=== PATIENT | male | born 1970 | race African-American/Black ===

== ENCOUNTER 2020-10-15 11:09 | Observation (INO) ==
[2020-10-15] MEDS ORDERED: ASPIRIN CHEW 81 MG TABLET PO STA (11:40)
[2020-10-15 11:50] LABS: Basophils # 0.1 10*3/uL (0.0-0.2); Basophils % 0.6 % (0.0-0.8); Eosinophils # 0.4 10*3/uL (0.0-0.87); Eosinophils % 2.7 % (0.00-10.9); Hematocrit 47.7 VOL% (42.0-52.0); Hemoglobin 15.7 GM/DL (14.0-18.0); Immature Granulocytes % 0.5 %; Immature Granulocytes Absolute 0.07 #; Lymphocytes # 4.5 10*3/uL (1.4-4.0); Lymphocytes % 31.4 % (21.2-54.2); Mean Corpuscular HGB Conc 32.9 GM/DL (32-36); Mean Corpuscular Volume 94.1 FL (87-102); Mean Platelet Volume 9.5 FL (9.6-12.0); Monocytes % 7.1 % (1.7-12.7); Neutrophils % 57.7 % (38.7-73.9); Platelet Count 254 T/CUMM (130-400); Red Blood Count 5.07 MC/CUMM (3.8-5.5); Red Cell Distribution Width 12.8 % (9.3-17.3); White Blood Count 14.2 T/CUMM (4-12)
[2020-10-15 12:13] LABS: Anisocytosis Slight; Atypical Lymphocytes Few; Eosinophils 3 % (0-10); Lymphocytes 30 % (20-55); Macrocytosis Slight; Nucleated Red Blood Cells 1 (0-5); Platelet Estimate Normal; Segmented Neutrophils 59 % (50-85); Total Cells Counted 100
[2020-10-15 12:14] LABS: Alanine Aminotransferase < 9 U/L (16-61); Alkaline Phosphatase 83 U/L (45-117); Aspartate Amino Transferase 11 U/L (0-37); Calcium 8.9 MG/DL (8.5-10.1)
[2020-10-15 12:15] LABS: Albumin 3.9 G/DL (3.4-5.0); Blood Urea Nitrogen 9 MG/DL (7-18); Carbon Dioxide 29 MMOL/L (21-32); Estimated Glom Filtration Rate 124 ML/MIN; Glucose 103 MG/DL (74-106); Osmolality,Calculated 279.3 MOS/KG (273-304); Potassium 4.3 MMOL/L (3.5-5.1); Sodium 141 MMOL/L (136-145); Total Protein 7.8 G/DL (6.4-8.2)
[2020-10-15] MEDS ORDERED: guaiFENesin/DM ER 600-30 MG TABLET PO PRN (13:52)
[2020-10-15] MEDS ORDERED: MAGNESIUM SULF RIDER 4 GM/100 ML PREMIX IV PRN (13:52)
[2020-10-15] MEDS ORDERED: diphenhydrAMINE CAP 25 MG CAPSULE PO PRN (13:52)
[2020-10-15] MEDS ORDERED: POTASSIUM CHLORIDE 20 MEQ TABLET PO PRN (13:52)
[2020-10-15] MEDS ORDERED: ONDANSETRON 4 MG/2 ML VIAL IV PRN (13:52)
[2020-10-15] MEDS ORDERED: MORPHINE 4 MG/1 ML VIAL IV PRN (13:52)
[2020-10-15] MEDS ORDERED: PROMETHAZINE 25 MG TABLET PO PRN (13:52)
[2020-10-15] MEDS ORDERED: ACETAMINOPHEN 325 MG TABLET PO PRN (13:52)
[2020-10-15] MEDS ORDERED: MAGNESIUM SULF RIDER 2 GM/50 ML PREMIX IV PRN ×2 (13:52→13:55)
[2020-10-15] MEDS ORDERED: DOCUSATE SODIUM 100 MG CAPSULE PO PRN (13:52)
[2020-10-15] MEDS ORDERED: traZODone 50 MG TABLET PO PRN (13:52)
[2020-10-15] MEDS ORDERED: ALUMINUM/MAGNES/SIMETH MAX STR 30 ML UDCUP PO PRN (13:52)
[2020-10-15] MEDS ORDERED: hydrALAZINE 20 MG/1 ML VIAL IV PRN (13:52)
[2020-10-15] MEDS ORDERED: DIAZEPAM 5 MG TABLET PO ONE (13:55)
[2020-10-15] MEDS ORDERED: POTASSIUM CHLORIDE RIDER 10 MEQ/100 ML PREMIX IV PRN (13:55)
[2020-10-15] MEDS ORDERED: diphenhydrAMINE CAP 50 MG CAPSULE PO ONE (13:55)
[2020-10-15] MEDS ORDERED: DIAZEPAM 5 MG TABLET ONE (13:58)
[2020-10-15] MEDS ORDERED: diphenhydrAMINE CAP 25 MG CAPSULE ONE (13:58)
[2020-10-15] MEDS ORDERED: CLORAZEPATE 3.75 MG TABLET PO PRN (14:01)
[2020-10-15] MEDS ORDERED: HYDROmorphone 2 MG/1 ML VIAL ONE (14:50)
[2020-10-15] MEDS ORDERED: MIDAZOLAM 2 MG/2 ML VIAL ONE ×2 (14:50→15:14)
[2020-10-15] MEDS ORDERED: LIDOCAINE 1% 20 ML VIAL ONE (14:51)
[2020-10-15] MEDS ORDERED: amLODIPine 5 MG TABLET PO STA (15:43)
[2020-10-15] MEDS ORDERED: CLOPIDOGREL 300 MG TABLET PO ONE (15:44)
[2020-10-15] MEDS ORDERED: CLOPIDOGREL 300 MG TABLET ONE (16:03)
[2020-10-15] MEDS: SODIUM CHLORIDE 0.45% 1,000 ML IV SCH (17:53)
[2020-10-15] MEDS: ALBUTEROL/IPRATROPIUM 3 ML NEB RESP TX SCH (18:55)
[2020-10-15] MEDS ORDERED: ROSUVASTATIN 20 MG TABLET PO SCH (21:00)
[2020-10-15] MEDS: carvediloL 6.25 MG TABLET PO SCH (21:40)
[2020-10-15] MEDS ORDERED: ALPRAZolam 0.25 MG TABLET PO PRN (22:11)
[2020-10-15] MEDS ORDERED: NICOTINE 21 MG/24 HR PATCH TRANSDERM PRN (22:14)
[2020-10-16] MEDS: SODIUM CHLORIDE 0.45% 1,000 ML IV SCH ×3 (00:26→09:44)
[2020-10-16] MEDS: ALBUTEROL/IPRATROPIUM 3 ML NEB RESP TX SCH ×2 (00:40→07:01)
[2020-10-16 04:39] LABS: Basophils # 0.1 10*3/uL (0.0-0.2); Basophils % 0.5 % (0.0-0.8); Eosinophils # 0.5 10*3/uL (0.0-0.87); Eosinophils % 3.3 % (0.00-10.9); Hematocrit 43.9 VOL% (42.0-52.0); Hemoglobin 14.5 GM/DL (14.0-18.0); Immature Granulocytes % 0.6 %; Immature Granulocytes Absolute 0.09 #; Lymphocytes # 4.4 10*3/uL (1.4-4.0); Lymphocytes % 30.9 % (21.2-54.2); Mean Corpuscular Volume 93.8 FL (87-102); Mean Platelet Volume 9.6 FL (9.6-12.0); Monocytes % 7.9 % (1.7-12.7); Neutrophils % 56.8 % (38.7-73.9); Platelet Count 225 T/CUMM (130-400); Red Blood Count 4.68 MC/CUMM (3.8-5.5); Red Cell Distribution Width 12.6 % (9.3-17.3); White Blood Count 14.2 T/CUMM (4-12)
[2020-10-16 05:11] LABS: Calcium 8.5 MG/DL (8.5-10.1); Osmolality,Calculated 276.4 MOS/KG (273-304); Potassium 3.9 MMOL/L (3.5-5.1); Risk Ratio 6.76
[2020-10-16] MEDS ORDERED: amLODIPine 5 MG TABLET PO SCH (09:00)
[2020-10-16] MEDS ORDERED: PANTOPRAZOLE 40 MG TABLET PO SCH (09:00)
[2020-10-16] MEDS ORDERED: CLOPIDOGREL 75 MG TABLET PO SCH (09:00)
[2020-10-16] MEDS ORDERED: ASPIRIN EC 81 MG TABLET PO SCH (09:00)
[2020-10-16 09:28] VITALS: BP 170/102
[2020-10-16] MEDS: carvediloL 6.25 MG TABLET PO SCH (09:44)
== END 2020-10-16 11:17 | disposition home or self-care (01) ==
LOC: N.ED 11:09 → N.EDINP 11:09 → N.TELES 14:35
PROVIDERS: ADMIT Internal Medicine Cardiovascular Disease; ATTEND Internal Medicine Cardiovascular Disease
PROC: CLCCHCL (ICD-10-PCS; 2020-10-15 14:45)